=== PATIENT | female | born 1975 | race Caucasian/White ===

== ENCOUNTER → 2019-06-21 | Outpatient (CLI) | payer MEDICAID ==
--- NOTE | 2019-06-21 10:17 | US ---
EXAMINATION TYPE: US pelvis complete transvag DATE OF EXAM: 06/21/2019 COMPARISON: NONE CLINICAL HISTORY: R10.32 Left lower quadrant pain. Hysterectomy and Right Oophorectomy 2017 TECHNIQUE: Transvaginal (TV) and Transabdominal (TA) . Transabdominal sonographic images of the pel vis were acquired. Transvaginal sonographic images were medically necessary to better assess the fol lowing anatomy: Ovaries Date of LMP: 2017 EXAM MEASUREMENTS: Uterus: Surgically absent cm Endometrial Stripe: Surgically absent cm Right Ovary: Surgically absent cm Left Ovary: 2.0 x 1.3 x 1.2 cm 1. Uterus: Surgically absent 2. Endometrium: Surgically absent 3. Right Ovary: Surgically absent 4. Left Ovary: ? pedunculated cyst (adjacent to left ovary = 0.9 x 0.9 x 0.7 cm Spectral, color and waveform doppler imaging shows good arterial and venous flow within the ovaries ; there is no evidence for ovarian torsion. 5. Bilateral Adnexa: wnl #3 pedunculated cyst adjacent to the left ovary. 6. Posterior cul-de-sac: wnl IMPRESSION: 1. Postsurgical changes of hysterectomy. No vaginal cuff mass. 2. Right-sided oophorectomy
== END | disposition home or self-care (01) ==
LOC: RADUSWWP 07:31
PROVIDERS: ATTEND Family Medicine
DX: R10.32 Left lower quadrant pain (principal); Z90.710 Acquired absence of both cervix and uterus; Z90.721 Acquired absence of ovaries, unilateral
CPT/HCPCS: 76830; 76856

== ENCOUNTER 2020-09-17 09:40 | Day surgery (SDC) | payer MEDICAID ==
[2020-09-10 15:20] VITALS: BMI 27.4
[~2020-09-17 09:40] MED LIST: LACTATED RINGERS 1,000 ML IV SCH; LIDOCAINE 1% (10MG/ML) FOR IV START INTRADERMA PRN
[2020-09-17 10:00] VITALS: TEMP 97.6
[2020-09-17] MEDS ORDERED: PROPOFOL 10 MG/ML 20 ML VIAL IV ONE (10:32)
[2020-09-17] MEDS ORDERED: LIDOCAINE 1% INJ 10MG/ML (20 ML MDV) ONE (10:32)
[2020-09-17 11:32] VITALS: RESP 16
--- NOTE | 2020-09-17 11:39 | P.PCN ---
Date of Procedure: 09/17/20 Description of Procedure: Brief history: Patient is a pleasant 44-year-old female presenting for outpatient EGD and colonoscopy for evaluation of dysphagia and history of polyps. The patient previously was on PPI therapy but had stopped. She presented to the clinic complaining of globus sensation and esophageal dysphagia. She started back on PPI therapy and reports some improvement. She also previously had colonoscopy with polypectomy. Procedure performed: Esophagogastroduodenoscopy with biopsy Colonoscopy with polypectomy Estimated blood loss: Minimal. Preoperative diagnosis: Dysphagia, esophageal dysphagia, GERD, history of colon polyps Anesthesia: MAC Procedure: After informed consent was obtained from the patient was brought into the endoscopy unit and IV sedation was administered by anesthesia under continuous monitoring. Initially upper endoscopy was done. The Olympus GF 190 video endoscope was inserted into the mouth and esophagus intubated without any difficulty and was gradually advanced into the stomach and duodenum and carefully examined. The bulb and second part of the duodenum appeared normal, with biopsies taken. The scope was then withdrawn into the stomach adequately insufflated with air and upon careful examination the antrum and body, cardia and fundus appeared normal, except for some mild punctate erythema suggestive of mild gastritis of the biopsies taken. The scope was then withdrawn into the esophagus. The GE junction was located at 38 cm to the incisors and biopsies were taken of the GE junction. It appeared regular with no erythema erosions or ulcerations, mid esophageal biopsies taken. Rest of the esophagus appeared normal. Patient tolerated the procedure well. At this time the patient continued to remain sedation. Initial digital rectal examination was normal. Olympus CF 190 video colonoscope was then inserted into the rectum and gradually advanced to the cecum without any difficulty. Careful examination was performed as the scope was gradually being withdrawn. The prep was excellent. The cecum, ascending colon, transverse colon, descending colon, sigmoid colon and rectum appeared normal. A diminutive 2 mm transverse colon polyp was removed with cold forcep polypectomy. Retroflexion was performed in the rectum and no lesions were noted, low grade internal hemorrhoids. Patient tolerated the procedure well. Impression: 1. Mild gastritis. Biopsies of the duodenum, antrum and body, GE junction and mid esophagus. 2. Diminutive transverse colon polyp removed with cold forcep polypectomy. Internal hemorrhoids. Recommendations: Findings of this examination were discussed with the patient as well as the nursing team. Okay to resume diet. Okay to resume medications. Await pathology from biopsies and polypectomy. Follow-up in GI clinic as previously scheduled. Recommend repeat colonoscopy in 7 years pending pathology from polypectomy.
[2020-09-17 11:58] VITALS: BP 112/71; PULSE 57
== END 2020-09-17 12:09 | disposition home or self-care (01) ==
LOC: ORWHC2ENDO 09:40
PROVIDERS: ATTEND Internal Medicine
DX: Z12.11 Encounter for screening for malignant neoplasm of colon (principal); K63.5 Polyp of colon; K29.70 Gastritis, unspecified, without bleeding; K64.8 Other hemorrhoids; R13.14 Dysphagia, pharyngoesophageal phase; Z87.891 Personal history of nicotine dependence; F41.9 Anxiety disorder, unspecified; K21.9 Gastro-esophageal reflux disease without esophagitis; Z80.3 Family history of malignant neoplasm of breast; G43.909 Migraine, unspecified, not intractable, without status migrainosus; Z90.710 Acquired absence of both cervix and uterus; Z98.890 Other specified postprocedural states; Z79.899 Other long term (current) drug therapy; Z91.012 Allergy to eggs
CPT/HCPCS: 88305; 45380; 43239; J2001; J2704

== ENCOUNTER → 2021-06-11 | Outpatient (CLI) | payer MEDICAID ==
--- NOTE | 2021-06-11 16:47 | CONS ---
CONSULTATION DATE OF SERVICE: 06/11/2021 45-year-old lady has been evaluated in [facility] for possible obstructive sleep apnea-hypopnea syndrome. 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 until 7 a.m. FALLING ASLEEP: No problems with falling asleep. No TV in bedroom. DURING SLEEP: She usually sleeps on the side position. According to her , she has severe snoring and witnessed episodes of stopped breathing during sleep. She wakes up from sleep up to 4 times with nocturia. She also significantly moves her legs during the night. DURING THE DAY/SLEEP WAKE EVALUATION: In the morning, she wakes up tired worries about her sleep, has problems with concentration and irritability. [place] Sleepiness Scale is 7. Usually she does not take naps. She drinks up to 3 caffeinated beverages during the day. PAST MEDICAL HISTORY: Positive for anxiety, acid reflux. History of some increasing cholesterol, sinus problems. PAST SURGICAL HISTORY: Total hysterectomy in 2017, , appendectomy. MEDICATIONS: Valtrex 500 mg once a day, Effexor 75 mg once a day, omeprazole 20 mg once a day, calcium supplement, multivitamin supplement. REVIEW OF SYSTEMS: Loud snoring, multiple awakenings from sleep. SOCIAL HISTORY: Positive for smoking on and off half pack a day for about 20 years, quit in November of 2012. FAMILY HISTORY: Hypertension, heart problems. REVIEW OF SYSTEMS: Multiple awakenings from sleep, snoring. PHYSICAL EXAMINATION: GENERAL: lady without distress. BP 127/73, HR 74, RR 15, height 5 feet 4 inches, weight 158.0, body mass index 27.9, temperature 96.9, oxygen saturation at room air 98%. Oropharynx wide pillars. Short distance between soft palate and posterior pharyngeal wall. NECK: 13 inches in circumference. Neck: Supple, no JVD. Thyroid is not palpable. LUNGS: Clear to percussion and to auscultation. Good air exchange. No wheezing or rhonchi. HEART: S1, S2 regular. No murmurs, gallops, or rubs. ABDOMEN: Soft and nontender. Bowel sounds are present. No organomegaly appreciated. EXTREMITIES: No clubbing or cyanosis. 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 Cranial nerves 2 to 7 intact. There is no fasciculation or atrophy. noted. No focal deficits observed. IMPRESSION: 1. Loud snoring, witnessed episodes of stopped breathing during sleep, multiple awakenings from sleep, obstructive sleep apnea-hypopnea syndrome. 2. Anxiety. 3. Acid reflux. 4. Hyperlipidemia. 5. Episodes of sinus headaches. 6. Status post hysterectomy in 2017. 7. Status post . 8. Status post appendectomy. PLAN: 1. Polysomnography for evaluation of patient's breathing during sleep. 2. CPAP/BiPAP titration if sleep study confirms obstructive sleep apnea-hypopnea syndrome. 3. Preferable position during sleep on the side. 4. No driving if patient feels any sleepiness. 5. I will see patient for follow up visit to explain results of testing and following plan. Thank you very much for referring this patient for consultation. Sincerely, Andrei Daly MD, PhD, FAASM Diplomat of [place] [employer] Sleep Medicine Board of [place] [employer] Consultant [facility] [place] MMODL / IJN: [id number] /
== END ==
LOC: SLEEP 11:11
PROVIDERS: ATTEND Internal Medicine
DX: G47.33 Obstructive sleep apnea (adult) (pediatric) (principal); F41.9 Anxiety disorder, unspecified; K21.9 Gastro-esophageal reflux disease without esophagitis; E78.5 Hyperlipidemia, unspecified; Z90.49 Acquired absence of other specified parts of digestive tract; Z90.711 Acquired absence of uterus with remaining cervical stump; Z87.59 Personal history of other complications of pregnancy, childbirth and the puerperium; Z87.891 Personal history of nicotine dependence; Z91.012 Allergy to eggs
CPT/HCPCS: 99211

== ENCOUNTER → 2021-07-12 | Outpatient (CLI) | payer MEDICAID | END | disposition home or self-care (01) | LOC: LABMAIN 17:24 | PROVIDERS: ATTEND Family Medicine | DX: Z20.822 Contact with and (suspected) exposure to COVID-19 (principal) | CPT/HCPCS: 87635 ==

== ENCOUNTER → 2021-11-12 | Outpatient (CLI) | payer MEDICAID ==
--- NOTE | 2021-11-14 13:46 | MM ---
Reason for exam: screening (asymptomatic). Last mammogram was performed 1 year and 8 months ago. History: Patient is postmenopausal. Family history of breast cancer in mother at age 52 and breast cancer in aunt at age 39. Physical Findings: A clinical breast exam by your physician is recommended on an annual basis and results should be correlated with mammographic findings. MG 3D Screening Mammo W/Cad Bilateral CC and MLO view(s) were taken. Prior study comparison: March 11, 2020, mammogram, performed at [facility]. There are scattered fibroglandular densities. No significant changes when compared with prior studies. ASSESSMENT: Negative, BI-RAD 1 RECOMMENDATION: Routine screening mammogram of both breasts in 1 year.
== END | disposition home or self-care (01) ==
LOC: RADMAMWWP 14:39
PROVIDERS: ATTEND Obstetrics & Gynecology
DX: Z12.31 Encounter for screening mammogram for malignant neoplasm of breast (principal); Z80.3 Family history of malignant neoplasm of breast; Z78.0 Asymptomatic menopausal state
CPT/HCPCS: 77063; 77067

== ENCOUNTER → 2022-07-15 | Outpatient (CLI) | payer MEDICAID ==
[2022-07-15 16:12] LABS: Albumin 4.5 g/dL (3.8-4.9); Albumin/Globulin Ratio 2.14 (1.60-3.17); Anion Gap 8.8 mmol/L (10.00-18.00); BUN/Creat Ratio 16.13 Ratio (12.00-20.00); Blood Urea Nitrogen 12.9 mg/dL (9.0-27.0); Calcium 9.4 mg/dL (8.7-10.3); Carbon Dioxide 29.2 mmol/L (20.0-27.5); Globulin 2.1 g/dL (1.6-3.3); Non-African American GFR(CKD) 87.2 (60.0-200.0); Potassium 4.2 mmol/L (3.5-5.5); Total Bilirubin 0.3 mg/dL (0.30-1.20); Total Protein 6.6 g/dL (6.2-8.2)
== END | disposition home or self-care (01) ==
LOC: LABWHC1 10:12
PROVIDERS: ATTEND Family Medicine
DX: R14.0 Abdominal distension (gaseous) (principal); R53.82 Chronic fatigue, unspecified
CPT/HCPCS: 36415; 80053; 86038